=== PATIENT | female | born 1980 | race African-American/Black ===

== ENCOUNTER 2023-04-12 17:04 | Emergency (ER) | payer OTHER ==
[~2023-04-12] VITALS: Ht 175.3 cm; Wt 90.0 kg
[2023-04-12 17:08] VITALS: BP 159/96; PULSE 115; RESP 20; TEMP 98.3; O2SAT 98
[2023-04-12] MEDS ORDERED: CEPH500T MT (18:54)
== END 2023-04-12 19:11 | disposition home or self-care (01) ==
LOC: ER 17:04
DX: L01.00 Impetigo, unspecified (principal); E11.9 Type 2 diabetes mellitus without complications; I10 Essential (primary) hypertension; Z98.890 Other specified postprocedural states
CPT/HCPCS: 99281

== ENCOUNTER 2024-04-13 17:27 | Emergency (ER) | payer OTHER ==
[~2024-04-13] VITALS: Ht 170.2 cm; Wt 68.0 kg
[~2024-04-13 17:27] MED LIST: CEPH500T MT
[2024-04-13 17:32] VITALS: BP 171/117; PULSE 89; RESP 18; TEMP 98.2; O2SAT 99
== END 2024-04-13 18:03 | disposition home or self-care (01) ==
LOC: ER 17:27
DX: R06.02 Shortness of breath (principal); F41.9 Anxiety disorder, unspecified; I50.9 Heart failure, unspecified; E11.9 Type 2 diabetes mellitus without complications; I42.9 Cardiomyopathy, unspecified; Z79.899 Other long term (current) drug therapy; Z98.890 Other specified postprocedural states
CPT/HCPCS: 99283